=== PATIENT | female | born 1945 | race Native Hawaiian/Other Pacific Islander ===

== ENCOUNTER 2016-09-04 15:54 | Outpatient (CLI) | payer OTHER ==
[~2016-09-04 15:54] MED LIST: AMOX500C85 PO; AMOX875T8 PO; ASA LOW STR81 MG PO; BENICAR20 MG PO; BENZONATATE200 MG PO; CELEBREX200 MG PO; CLOPIDOGREL75 MG PO; COZAAR100 MG PO; DEXL60CA4 PO; HYDR200T3 PO; LOPRESSOR100 MG PO; METF500T PO; PROM25TA52 PO; SIMV40TA57; TRAMTAB2
== END 2016-09-04 19:11 | disposition home or self-care (01) ==
LOC: RAD 15:54
DX: I10 Essential (primary) hypertension (principal)

== ENCOUNTER 2016-09-25 08:34 | Outpatient (CLI) | payer OTHER | END 2016-09-25 19:12 | disposition home or self-care (01) | LOC: NM 08:34 | DX: R06.09 Other forms of dyspnea (principal); R53.83 Other fatigue; E78.4 Other hyperlipidemia; I10 Essential (primary) hypertension | CPT/HCPCS: A9500; J2785 ==

== ENCOUNTER 2017-10-20 09:46 | Outpatient (CLI) | payer OTHER | END 2017-10-20 20:00 | disposition home or self-care (01) | LOC: US 09:46 | DX: Z12.31 Encounter for screening mammogram for malignant neoplasm of breast (principal); I71.4 Abdominal aortic aneurysm, without rupture ==

== ENCOUNTER 2018-02-03 13:00 | Outpatient (CLI) | payer OTHER ==
[2018-02-03 13:23] LABS: PLATELET COUNT 213 K/uL (152-353)
[2018-02-03 13:42] LABS: POTASSIUM 4.6 mmol/L (3.6-5.2)
== END 2018-02-03 23:59 | disposition home or self-care (01) ==
LOC: LABW 13:00
PROVIDERS: Dermatology
DX: Z79.899 Other long term (current) drug therapy (principal)
CPT/HCPCS: 36415; 80053; 85027

== ENCOUNTER 2018-03-16 10:03 | Outpatient (CLI) | payer OTHER ==
[2018-03-16 10:27] LABS: PLATELET COUNT 214 K/uL (152-353)
[2018-03-16 11:33] LABS: POTASSIUM 4.3 mmol/L (3.6-5.2)
== END 2018-03-16 19:08 | disposition home or self-care (01) ==
LOC: LABW 10:03
PROVIDERS: Internal Medicine Hematology & Oncology
DX: D64.9 Anemia, unspecified (principal)
CPT/HCPCS: 36415; 80053; 82728; 83540; 83550; 85027

== ENCOUNTER 2018-05-05 17:04 | Outpatient (CLI) | payer OTHER ==
[2018-05-05 17:45] LABS: PLATELET COUNT 234 K/uL (152-353)
[2018-05-05 18:06] LABS: POTASSIUM 4.3 mmol/L (3.6-5.2)
== END 2018-05-05 21:07 | disposition home or self-care (01) ==
LOC: LABW 17:04
PROVIDERS: Internal Medicine
DX: M75.52 Bursitis of left shoulder (principal); M50.90 Cervical disc disorder, unspecified, unspecified cervical region; E11.9 Type 2 diabetes mellitus without complications
CPT/HCPCS: 36415; 80053; 80061; 81000; 82043; 82570; 83036; 84439; 84443; 85027

== ENCOUNTER 2018-08-26 11:21 | Outpatient (CLI) | payer OTHER ==
[2018-08-26 11:39] LABS: PLATELET COUNT 216 K/uL (152-353)
[2018-08-26 11:57] LABS: POTASSIUM 4.4 mmol/L (3.6-5.2)
== END 2018-08-26 21:38 | disposition home or self-care (01) ==
LOC: LABW 11:21
PROVIDERS: Dermatology
DX: Z79.899 Other long term (current) drug therapy (principal)
CPT/HCPCS: 36415; 80053; 85027

== ENCOUNTER 2019-04-20 15:05 | Outpatient (CLI) | payer OTHER | END 2019-04-20 22:00 | disposition home or self-care (01) | LOC: US 15:05 | DX: M79.604 Pain in right leg (principal); M54.5 Low back pain ==

== ENCOUNTER 2019-06-17 11:37 | Outpatient (CLI) | payer OTHER | END 2019-06-17 22:17 | disposition home or self-care (01) | LOC: US 11:37 | DX: N18.3 Chronic kidney disease, stage 3 (moderate) (principal) ==

== ENCOUNTER 2019-07-06 18:49 | Emergency (ER) | payer OTHER ==
[~2019-07-06] VITALS: Ht 149.9 cm; Wt 99.8 kg
[2019-07-06 19:54] LABS: PLATELET COUNT 232 K/uL (152-353)
[2019-07-06 20:03] LABS: POTASSIUM 4.5 mmol/L (3.6-5.2)
[2019-07-06 20:17] VITALS: BP 173/69; TEMP 98.5
== END 2019-07-06 20:17 | disposition home or self-care (01) ==
LOC: ED 18:49
PROVIDERS: Emergency Medicine
DX: I10 Essential (primary) hypertension (principal); N28.89 Other specified disorders of kidney and ureter
CPT/HCPCS: 80053; 81000; 85027; 99283

== ENCOUNTER 2019-08-23 13:32 | Outpatient (CLI) | payer OTHER | END 2019-08-23 19:46 | disposition home or self-care (01) | LOC: US 13:32 | DX: R09.89 Other specified symptoms and signs involving the circulatory and respiratory systems (principal) ==

== ENCOUNTER 2020-07-17 14:43 | Outpatient (CLI) | payer OTHER ==
[2020-07-17 15:14] LABS: PLATELET COUNT 239 K/uL (152-353)
[2020-07-17 15:24] LABS: POTASSIUM 4.5 mmol/L (3.6-5.2)
== END 2020-07-17 19:36 | disposition home or self-care (01) ==
LOC: LABW 14:43
PROVIDERS: ATTEND Internal Medicine
DX: N18.31 Chronic kidney disease, stage 3a (principal)
CPT/HCPCS: 36415; 80053; 81000; 82306; 82330; 82570; 83735; 83970; 84100; 84155; 85027

== ENCOUNTER 2020-09-20 12:20 | Outpatient (CLI) | payer OTHER | END 2020-09-20 19:57 | disposition home or self-care (01) | LOC: LABW 12:20 | PROVIDERS: ATTEND Internal Medicine | DX: R06.02 Shortness of breath (principal) | CPT/HCPCS: 36415; 83880; 85379 ==

== ENCOUNTER 2020-09-26 14:59 | Outpatient (CLI) | payer OTHER ==
[2020-09-26 15:34] LABS: PLATELET COUNT 273 K/uL (152-353)
[2020-09-26 15:45] LABS: POTASSIUM 4.9 mmol/L (3.6-5.2)
== END 2020-09-26 22:06 | disposition home or self-care (01) ==
LOC: LABW 14:59
PROVIDERS: ATTEND Internal Medicine
DX: E11.22 Type 2 diabetes mellitus with diabetic chronic kidney disease (principal); N18.31 Chronic kidney disease, stage 3a
CPT/HCPCS: 36415; 80053; 81000; 82306; 82330; 82570; 83036; 83735; 83970; 84155; 85027

== ENCOUNTER 2020-11-23 15:04 | Outpatient (CLI) | payer OTHER ==
[2020-11-23 15:46] LABS: PLATELET COUNT 231 K/uL (152-353)
[2020-11-23 17:03] LABS: POTASSIUM 4.9 mmol/L (3.6-5.2)
== END 2020-11-23 21:23 | disposition home or self-care (01) ==
LOC: LABW 15:04
PROVIDERS: ATTEND Dermatology
DX: Z79.899 Other long term (current) drug therapy (principal)
CPT/HCPCS: 80053; 85027

== ENCOUNTER 2022-02-26 08:30 | Outpatient (CLI) | payer OTHER | END 2022-02-26 19:18 | disposition home or self-care (01) | LOC: US 08:30 | PROVIDERS: ATTEND Internal Medicine | DX: I71.4 Abdominal aortic aneurysm, without rupture (principal) ==

== ENCOUNTER 2022-06-18 12:01 | Outpatient (CLI) | payer OTHER ==
[2022-06-18 12:34] LABS: PLATELET COUNT 233 K/uL (152-353)
== END 2022-06-18 19:13 | disposition home or self-care (01) ==
LOC: LABW 12:01
PROVIDERS: ATTEND Internal Medicine
DX: E11.22 Type 2 diabetes mellitus with diabetic chronic kidney disease (principal); N18.32 Chronic kidney disease, stage 3b
CPT/HCPCS: 36415; 81002; 82043; 82306; 82330; 82570; 83036; 83735; 83970; 84100; 84156; 85027

== ENCOUNTER 2022-09-08 10:19 | Outpatient (CLI) | payer OTHER ==
[2022-09-08 10:39] LABS: PLATELET COUNT 248 K/uL (152-353)
[2022-09-08 11:25] LABS: POTASSIUM 4.5 mmol/L (3.6-5.2)
== END 2022-09-08 19:04 | disposition home or self-care (01) ==
LOC: LABW 10:19
PROVIDERS: ATTEND Internal Medicine
DX: E11.9 Type 2 diabetes mellitus without complications (principal)
CPT/HCPCS: 36415; 80053; 80061; 81002; 83036; 84439; 84443; 85027

== ENCOUNTER 2022-12-04 11:30 | Outpatient (CLI) | payer OTHER ==
[2022-12-04 11:53] LABS: PLATELET COUNT 226 K/uL (152-353)
[2022-12-04 12:24] LABS: POTASSIUM 4.6 mmol/L (3.6-5.2)
== END 2022-12-04 17:00 | disposition home or self-care (01) ==
LOC: LABW 11:30
PROVIDERS: ATTEND Internal Medicine
DX: E11.9 Type 2 diabetes mellitus without complications (principal); I25.10 Atherosclerotic heart disease of native coronary artery without angina pectoris
CPT/HCPCS: 36415; 80053; 80061; 81002; 82043; 83036; 84439; 84443; 85027

== ENCOUNTER 2022-12-30 12:16 | Outpatient (CLI) | payer OTHER ==
[2022-12-30 12:50] LABS: PLATELET COUNT 216 K/uL (152-353)
== END 2022-12-30 19:07 | disposition home or self-care (01) ==
LOC: LABW 12:16
PROVIDERS: ATTEND Internal Medicine
DX: E11.22 Type 2 diabetes mellitus with diabetic chronic kidney disease (principal); N18.32 Chronic kidney disease, stage 3b
CPT/HCPCS: 36415; 81002; 82043; 82306; 82330; 82570; 83036; 83735; 83970; 84100; 84156; 85027

== ENCOUNTER 2023-02-11 13:06 | Outpatient (CLI) | payer OTHER ==
[2023-02-11 13:49] LABS: PLATELET COUNT 228 K/uL (152-353)
== END 2023-02-11 19:02 | disposition home or self-care (01) ==
LOC: LAB 13:06
PROVIDERS: ATTEND Internal Medicine
DX: R79.89 Other specified abnormal findings of blood chemistry (principal); Z79.899 Other long term (current) drug therapy
CPT/HCPCS: 80053; 84439; 84443; 85027